=== PATIENT | female | born 1990 | race Caucasian/White ===

== ENCOUNTER 2022-06-21 16:46 | Emergency (ER) | payer BC ==
[~2022-06-21] VITALS: Ht 167.6 cm; Wt 54.4 kg
[2022-06-21 18:16] LABS: BASOPHILS % (AUTO) 0.4 % (0.0-2.0); EOSINOPHILS % (AUTO) 1.1 % (0.0-6.0); HEMATOCRIT 37 % (33-45); HEMOGLOBIN 12.4 g/dL (11.5-14.8); LYMPHOCYTES # (AUTO) 1.4 K/uL (0.8-4.8); LYMPHOCYTES % (AUTO) 26.9 % (20.0-44.0); MEAN CORPUSCULAR HGB CONC 34 g/dl (31.0-36.0); MEAN CORPUSCULAR VOLUME 88 fL (82-100); MONOCYTES # (AUTO) 0.3 K/uL (0.1-1.30); MONOCYTES % (AUTO) 6.1 % (2.0-12.0); NEUTROPHILS # (AUTO) 3.3 K/uL (1.8-8.9); NEUTROPHILS % (AUTO) 65.5 % (43.0-81.0); PLATELET COUNT (AUTO) 179 K/uL (150-450); RED BLOOD CELL COUNT(AUTO) 4.13 MIL/uL (4.0-5.2); WHITE BLOOD COUNT (AUTO) 5.1 K/uL (4.3-11.0)
[2022-06-21 18:22] LABS: CALCIUM, SERUM 8.7 mg/dL (8.5-10.1); CREATININE 0.4 mg/dL (0.6-1.3); POTASSIUM 3.8 mmol/L (3.5-5.1)
[2022-06-21 18:25] LABS: BILIRUBIN,URINE NEGATIVE (NEGATIVE); COLOR,URINE YELLOW (YELLOW); LEUKOCYTE ESTERASE ,URINE NEGATIVE (NEGATIVE); NITRITE, URINE NEGATIVE (NEGATIVE); PROTEIN,URINE NEGATIVE (NEGATIVE); UGLUCOSE NEGATIVE (NEGATIVE); UROBILINOGEN,URINE 0.2 EU/dL (0.2)
--- NOTE | 2022-06-21 18:54 | NUR ---
CANDIDATE FOR RHOGAM, MADE MD RICCI
--- NOTE | 2022-06-21 19:15 | NUR ---
patient bibself c/o "Started having some vaginal bleeding this am". pt is a/o x 4 rr even and unlabored no sob noted, vss, no acute distress noted. will continue to monitor.
--- NOTE | 2022-06-21 21:00 | NUR ---
BLOOD CONSENT FORMS SIGNED BY THE PT
--- NOTE | 2022-06-21 21:15 | NUR ---
RHOGAM GIVEN TO PT LDELTOID
--- NOTE | 2022-06-21 21:20 | NUR ---
NO ADVERSE REACTION
--- NOTE | 2022-06-21 21:35 | NUR ---
Patient discharged to home in stable condition. Written and verbal after care instructions given. Patient verbalizes understanding of instruction.
[2022-06-21 22:26] VITALS: BP 131/74
== END 2022-06-21 22:26 | disposition home or self-care (01) ==
LOC: ER 16:49
DX: O20.0 Threatened abortion (principal); Z3A.01 Less than 8 weeks gestation of pregnancy
CPT/HCPCS: 99284; 76856; 85025; 80048; 84703; 81003; 36415; 85730; 84702; J2790